=== PATIENT | female | born 1965 | race Caucasian/White ===

== ENCOUNTER 2017-03-03 07:30 | Emergency (ER) | payer BC ==
[2017-03-03 08:05] VITALS: BP 134/82
--- NOTE | 2017-03-03 08:31 | UC ---
Back Pain HPI - HPI Summary HPI Summary: Acute left lower back pain worsening since yesterday since tripping over the dog. no neurologic symptoms or deficits. no prior back disease. no abd or other symptoms. - History of Current Complaint Chief Complaint: UCBackPain Stated Complaint: BACK PAIN Time Seen by Provider: 03/03/17 07:46 Hx Last Menstrual Period: 02/05/17 Onset/Duration: Sudden Onset Timing: Constant, Lasting Days Severity Initially: Moderate Severity Currently: Severe Back Pain: Is Discrete @ Character: Sharp, Aching Aggravating: Movement, Lifting, Bending, Walking Alleviating: Rest Associated Signs And Symptoms: Positive: Negative - Allergies/Home Medications Allergies/Adverse Reactions: Allergies Allergy/AdvReac Type Severity Reaction Status Date / Time No Known Allergies Allergy Verified 03/03/17 07:47 Home Medications: Home Medications Ascorbic Acid TAB* [Vitamin C TAB*] 500 mg PO DAILY 03/03/17 [History Confirmed 03/03/17] Mometasone NASAL (NF) [Nasonex (NF)] 1 spray .SEE ORDER DAILY 03/03/17 [History Confirmed 03/03/17] Alkol-3 Fatty Acids [Fish Oil] 1,000 mg PO DAILY 03/03/17 [History Confirmed ] Venlafaxine EXT RELEASE CAP* [Effexor Xr CAP*] 150 mg PO DAILY 03/03/17 [ History Confirmed 03/03/17] Vitamin B Complex CAP* [B Complex CAP*] 1 cap PO DAILY 03/03/17 [History Confirmed 03/03/17] PMH/Surg Hx/FS Hx/Imm Hx Previously Healthy: Yes - Surgical History Surgical History: Yes Surgery Procedure, Year, and Place: appendectomy 2002. right achilles repair 2009 - Family History Known Family History: Positive: Other - no back related disease. - Social History Alcohol Use: Rare Substance Use Type: None Smoking Status (MU): Never Smoked Tobacco Review of Systems All Other Systems Reviewed And Are Negative: Yes Physical Exam Triage Information Reviewed: Yes Appearance: Pain Distress - obvious stiffness. Vital Signs: Initial Vital Signs Temp 99.1 F 03/03/17 07:41 Pulse 82 03/03/17 07:41 Resp 16 03/03/17 07:41 BP 134/82 03/03/17 07:41 Pulse Ox 100 03/03/17 07:41 Vital Signs Reviewed: Yes Eye Exam: Normal ENT Exam: Normal Dental Exam: Normal Neck exam: Normal Neck: Positive: Supple, Nontender, No Lymphadenopathy Respiratory Exam: Normal Cardiovascular Exam: Normal Abdominal Exam: Normal Musculoskeletal Exam: Other - Low back tenderness and no obvious muscle spasm. Straight leg raise negative. Musculoskeletal: Positive: ROM Limited @ Neurological Exam: Normal - reflexes patella and achilles elena 1+ and symmetric. sensation grossly intact. strength ankel flexion and extension 5/5 elena. Neurological: Positive: Muscle Tone Normal. Negative: Abnormal Muscle Tone Psychological Exam: Normal Back Pain Course/Dx - Differential Dx/Diagnosis Provider Diagnoses: low back strain. Discharge - Discharge Plan Condition: Good Disposition: HOME Prescriptions: Cyclobenzaprine TAB* [Flexeril 10 MG TAB*] 10 mg PO BID PRN #20 tab PRN Reason: Pain Naproxen TAB* [Naprosyn 250 mg TAB*] 500 mg PO Q8H PRN #20 tab PRN Reason: Pain Patient Education Materials: Low Back Strain (ED) Forms: *Work Release Referrals: Suzan Bartlett MD [Primary Care Provider] - 5 Days
== END 2017-03-03 08:58 | disposition home or self-care (01) ==
LOC: UCCORT 07:30
DX: S39.012A Strain of muscle, fascia and tendon of lower back, initial encounter (principal); W01.0XXA Fall on same level from slipping, tripping and stumbling without subsequent striking against object, initial encounter; Y93.9 Activity, unspecified; Y92.9 Unspecified place or not applicable
CPT/HCPCS: 99212; G0463